=== PATIENT | male | born 1970 | race Asian ===

== ENCOUNTER 2024-03-30 19:46 | Emergency (ER) | payer OTHER ==
[2024-03-30 19:51] VITALS: BP 135/91; PULSE 104; RESP 18; TEMP 98.6; BMI 49.5
== END 2024-03-30 21:08 | disposition home or self-care (01) ==
LOC: JERFT 19:46
DX: M23.206 Derangement of unspecified meniscus due to old tear or injury, right knee (principal); M25.561 Pain in right knee
CPT/HCPCS: 99283-25

== ENCOUNTER 2024-04-20 04:18 | Day surgery (SDC) | payer OTHER ==
[2024-04-18 12:05] VITALS: BMI 48.4
[2024-04-20] MEDS ORDERED: DEXAMETHASONE SOD PHOSPHATE 10 MG/1 ML VIAL ONE (07:22)
[2024-04-20] MEDS ORDERED: LIDOCAINE HCL/PF 1% SDV 5ML VIAL ONE (07:22)
[2024-04-20] MEDS: LIDOCAINE HCL 1% PRESERVATIVE FREE - 30ML VIAL IJ ONE (09:04)
[2024-04-20] MEDS: IOHEXOL 180 MG/1 ML ML IJ ONE (09:05)
[2024-04-20] MEDS: DEXAMETHASONE SOD PHOSPHATE 10 MG/1 ML VIAL IVPUSH ONE (09:05)
[2024-04-20 10:22] VITALS: RESP 18
[2024-04-20 10:25] VITALS: BP 102/79; PULSE 89; TEMP 97.7
[2024-04-20] MEDS ORDERED: ACETAMINOPHEN 500 MG TABLET (FP) PO PRN (10:38)
== END 2024-04-20 09:38 | disposition home or self-care (01) ==
LOC: JASU-SURG 04:18
PROVIDERS: ATTEND Pain Medicine Pain Medicine
PROC: 3E0R3BZ Introduction of Anesthetic Agent into Spinal Canal, Percutaneous Approach (ICD-10-PCS; 2024-04-20)
PROC: 3E0R33Z Introduction of Anti-inflammatory into Spinal Canal, Percutaneous Approach (ICD-10-PCS; principal; 2024-04-20 08:30)
DX: M48.061 Spinal stenosis, lumbar region without neurogenic claudication (principal); M54.16 Radiculopathy, lumbar region
CPT/HCPCS: 76000-TC-FY; J1100

== ENCOUNTER 2024-05-18 04:05 | Day surgery (SDC) | payer OTHER ==
[2024-05-17 11:20] VITALS: BMI 48.4
[2024-05-18 07:21] VITALS: RESP 18
[2024-05-18] MEDS ORDERED: BUPIVACAINE HCL/PF 0.75% 10 ML VIAL ONE (07:39)
[2024-05-18] MEDS ORDERED: LIDOCAINE HCL/PF 1% SDV 5ML VIAL ONE (07:39)
[2024-05-18] MEDS: BUPIVACAINE HCL/PF 0.75% 10 ML VIAL PNB ONE ×2 (09:26)
[2024-05-18] MEDS: LIDOCAINE 1% P/F 10 MG/ML VIAL PNB ONE ×2 (09:26)
[2024-05-18] MEDS ORDERED: ACETAMINOPHEN 500 MG TABLET (FP) PO PRN (10:54)
[2024-05-18 11:40] VITALS: TEMP 97.8
[2024-05-18 11:43] VITALS: BP 102/67; PULSE 94
== END 2024-05-18 10:05 | disposition home or self-care (01) ==
LOC: JASU-SURG 04:05
PROVIDERS: ATTEND Pain Medicine Pain Medicine
PROC: 3E0T33Z Introduction of Anti-inflammatory into Peripheral Nerves and Plexi, Percutaneous Approach (ICD-10-PCS; 2024-05-18)
PROC: 3E0T3BZ Introduction of Anesthetic Agent into Peripheral Nerves and Plexi, Percutaneous Approach (ICD-10-PCS; principal; 2024-05-18 08:30)
DX: M47.816 Spondylosis without myelopathy or radiculopathy, lumbar region (principal)
CPT/HCPCS: 76000-TC-FY

== ENCOUNTER 2024-06-21 09:15 | Emergency (ER) | payer OTHER ==
[2024-06-21 09:43] VITALS: RESP 20; BMI 50.2
[2024-06-21 09:46] LABS: BASO % 0.6 % (0-2.0); EOS % 2.5 % (0-4.5); HEMATOCRIT 44.4 % (35.4-49); HEMOGLOBIN 15.2 GM/dL (11.7-16.9); LYMPH % 30.8 % (8-40); MCHC 34.3 g/dl (32.0-35.9); MEAN PLT VOLUME 8.1 fl (7.5-11.1); MONO % 7.4 % (3.8-10.2); NEUT % 58.7 % (42.8-82.8); PLATELET COUNT 159 10^3/uL (134-434); RBC 4.62 M/mm3 (4.00-5.60); WHITE BLOOD COUNT 5.7 K/mm3 (4.0-10.0)
[2024-06-21 09:48] LABS: INR 0.98 (0.83-1.09); PROTHROMBIN TIME (PATIENT) 11.1 SEC (9.7-13.0)
[2024-06-21 09:51] LABS: ACTIVATED PTT 29.8 SECONDS (25.2-36.5)
[2024-06-21 10:23] LABS: POTASSIUM 4.2 mmol/L (3.5-5.1)
[2024-06-21 10:25] LABS: CALCIUM 8.8 mg/dL (8.5-10.1)
[2024-06-21 10:26] LABS: ALBUMIN 3.7 g/dl (3.4-5.0); BLOOD UREA NITROGEN 22.4 mg/dL (7-18); MAGNESIUM 2.5 mg/dL (1.8-2.4)
[2024-06-21 10:28] VITALS: TEMP 98
[2024-06-21 10:29] LABS: CREATININE 1.3 mg/dL (0.55-1.3)
[2024-06-21 10:31] LABS: BILIRUBIN,TOTAL 0.5 mg/dL (0.2-1); TOT PROT 6.3 g/dl (6.4-8.2)
[2024-06-21 15:50] VITALS: BP 101/70; PULSE 95
== END 2024-06-21 15:56 | disposition short-term general hospital (02) ==
LOC: JER 09:15
DX: I49.9 Cardiac arrhythmia, unspecified (principal); R06.02 Shortness of breath; R42 Dizziness and giddiness; Z20.822 Contact with and (suspected) exposure to COVID-19
CPT/HCPCS: 0241U-QW; 36415; 71045-TC-FY; 80053; 82962; 83735; 84484; 85025; 85610; 85730; 93005; 93010; 99285-25

== ENCOUNTER 2024-08-23 04:21 | Day surgery (SDC) | payer OTHER ==
[2024-08-21 15:33] VITALS: BMI 50.2
[2024-08-23] MEDS: BUPIVACAINE HCL/PF 0.75% 10 ML VIAL NR ONE
[2024-08-23 08:23] VITALS: RESP 18
[2024-08-23] MEDS ORDERED: ACETAMINOPHEN 500 MG TABLET (FP) PO PRN (08:52)
[2024-08-23] MEDS: LIDOCAINE HCL 1% PRESERVATIVE FREE - 30ML VIAL IJ ONE ×2 (09:59)
[2024-08-23 10:57] VITALS: TEMP 98.2
[2024-08-23 11:15] VITALS: BP 115/60; PULSE 78
== END 2024-08-23 11:00 | disposition home or self-care (01) ==
LOC: JASU-SURG 04:21
PROVIDERS: ATTEND Pain Medicine Pain Medicine
PROC: 01HY3MZ Insertion of Neurostimulator Lead into Peripheral Nerve, Percutaneous Approach (ICD-10-PCS; principal; 2024-08-23 09:30)
DX: G89.4 Chronic pain syndrome (principal); M54.50 Low back pain, unspecified
CPT/HCPCS: 64555; C1778; 76000-TC-FY

== ENCOUNTER 2024-09-20 03:50 | Day surgery (SDC) | payer OTHER ==
[2024-09-18 16:18] VITALS: BMI 50.2
[2024-09-20 08:41] VITALS: RESP 18
[2024-09-20] MEDS ORDERED: ACETAMINOPHEN 500 MG TABLET (FP) PO PRN (08:49)
[2024-09-20] MEDS: LIDOCAINE HCL 1% PRESERVATIVE FREE - 30ML VIAL IJ ONE ×2 (10:08)
[2024-09-20 11:53] VITALS: BP 116/81; PULSE 78; TEMP 97.7
== END 2024-09-20 11:05 | disposition home or self-care (01) ==
LOC: JASU-SURG 03:50
PROVIDERS: ATTEND Pain Medicine Pain Medicine
PROC: [UNRECOGNIZED PROCEDURE] (principal; 2024-09-20 10:00)
DX: G89.4 Chronic pain syndrome (principal); M54.50 Low back pain, unspecified
CPT/HCPCS: 64555; C1778; 76000-TC-FY

== ENCOUNTER 2024-12-06 07:27 | Day surgery (SDC) | payer OTHER ==
[2024-12-04 11:22] VITALS: BMI 50.2
[2024-12-06] MEDS ORDERED: ACETAMINOPHEN 500 MG TABLET (FP) PO PRN (08:51)
[2024-12-06 10:36] VITALS: RESP 18; TEMP 97.3
[2024-12-06] MEDS ORDERED: LIDOCAINE HCL/PF 1% SDV 5ML VIAL ONE (11:18)
[2024-12-06 12:02] VITALS: BP 105/62; PULSE 78
== END 2024-12-06 12:10 | disposition home or self-care (01) ==
LOC: JASU-SURG 07:27
PROVIDERS: ATTEND Pain Medicine Pain Medicine
PROC: 3E0T3BZ Introduction of Anesthetic Agent into Peripheral Nerves and Plexi, Percutaneous Approach (ICD-10-PCS; principal; 2024-12-06 11:25)
DX: M47.816 Spondylosis without myelopathy or radiculopathy, lumbar region (principal)
CPT/HCPCS: 76000-TC-FY